=== PATIENT | female | born 1990 | race Caucasian/White ===

== ENCOUNTER 2016-08-23 17:06 | Emergency (ER) | payer BC ==
[2016-08-23 19:20] VITALS: BP 137/92
--- NOTE | 2016-08-23 20:47 | UC ---
Throat Pain/Nasal Andrés HPI - HPI Summary HPI Summary: 25 female presents with mother complaining of swollen lymph nodes and neck tightness for the past 2 weeks. Patient states she is also feeling fatigued. She states she has been feeling the lymph nodes and neck tightness especially when she lays down and before bed. She seems to improve during the day however she states "she has been obsessing over it" and when she goes to bed it bothers her. She has not had any severe symptoms other than vague cold symptoms including runny nose and dry cough. She denies difficulty breathing, sore throat upon swallowing and chest pain. She states her neck just feels tight and sore when she moves it. She finds her self lifting her head up to relieve the tightness often. denies excessive weight loss, gain and constipation/diarrhea. no fever but does sometimes have chills. Also states she has a swollen lymph node under her left arm in her armpit. - History of Current Complaint Chief Complaint: UCGeneralIllness Stated Complaint: SWOLLEN GLANDS Time Seen by Provider: 08/23/16 19:27 Hx Obtained From: Patient Hx Last Menstrual Period: 3 WEEKS AGO Onset/Duration: Sudden Onset, Lasting Weeks Severity: Moderate Pain Intensity: 6 Pain Scale Used: 0-10 Numeric Cough: Nonproductive Associated Signs & Symptoms: Positive: Nasal Discharge. Negative: Dysphagia, Wheezing, Hoarseness, Sinus Discomfort, Fever, Vomiting - Allergies/Home Medications Allergies/Adverse Reactions: Allergies Allergy/AdvReac Type Severity Reaction Status Date / Time No Known Allergies Allergy Verified 08/23/16 19:20 Home Medications: Home Medications [id number]-[id number]-[id number] [Night Time Cold & Flu Rel 15-6.25-325 mg] 1 cap PO PRN 08/23/16 [History] PMH/Surg Hx/FS Hx/Imm Hx Previously Healthy: Yes Endocrine History Of: Denies: Diabetes, Thyroid Disease Cardiovascular History Of: Denies: Cardiac Disorders, Hypertension Respiratory History Of: Denies: COPD, Asthma GI/ History Of: Denies: Ulcer - Surgical History Surgical History: None - Family History Known Family History: Positive: None - Social History Alcohol Use: Occasionally Substance Use Type: None Smoking Status (MU): Never Smoked Tobacco Review of Systems Constitutional: Chills, Fatigue Skin: Negative Eyes: Negative ENT: Nasal Discharge Respiratory: Cough - slight intermittent dry cough past few days Cardiovascular: Negative Gastrointestinal: Negative Genitourinary: Negative Motor: Negative Neurovascular: Negative Musculoskeletal: Myalgia - neck soreness, tightness Neurological: Negative Psychological: Negative All Other Systems Reviewed And Are Negative: Yes Physical Exam Triage Information Reviewed: Yes Appearance: Well-Appearing, No Pain Distress, Well-Nourished Vital Signs: Initial Vital Signs Temp 97.8 F 08/23/16 19:17 Pulse 74 08/23/16 19:17 Resp 16 08/23/16 19:17 BP 137/92 08/23/16 19:17 Pulse Ox 100 08/23/16 19:17 Vital Signs Reviewed: Yes Eyes: Positive: Conjunctiva Clear ENT: Positive: Normal ENT inspection, Hearing grossly normal, Pharynx normal, Nasal congestion, Nasal drainage, TMs normal Dental: Positive: Cervical Lymphadenopathy - 1 slightly enlarged left cervical lymph node Neck: Positive: Supple, Tenderness @ - mild diffuse tenderness on palpation of neck, pain/tenderness with all movements, Enlarged Nodes @ - left cervical and left upper extremity posterior near axilla., Other: - thyroid of normal size, no nodules palpated Respiratory: Positive: Chest non-tender, Lungs clear, Normal breath sounds, No respiratory distress Cardiovascular: Positive: RRR, No Murmur, Pulses Normal Abdominal Exam: Normal Musculoskeletal Exam: Normal Neurological Exam: Normal Psychological Exam: Normal Skin Exam: Normal Throat Pain/Nasal Course/Dx - Course Course Of Treatment: patient was informed that viral illness can cause swollen glands and tend to last a few weeks. due to non-specific symptoms and physical exam findings patient will be treated with a muscle relaxer to determine if it is muscular strain. patient seems to be anxious and stated herself that she has been "obsessing" over the swollen glands and tightness of her neck. Informed that it is possible due to over thinking and constantly palpating and moving the neck could have caused a strain. Stongly recommended follow up with PCP to have further testing done to r/o more serious causes and so PCP is able to follow-up. if anything worsens told to return to . - Differential Dx/Diagnosis Differential Diagnosis/HQI/PQRI: Influenza, Mononucleosis, Pharyngitis, Sinusitis, URI Provider Diagnoses: viral illness, lymphadenopathy, muscle strain-neck Discharge - Discharge Plan Condition: Stable Disposition: HOME Prescriptions: Cyclobenzaprine TAB* [Flexeril TAB*] 10 mg PO DAILY #8 tab Patient Education Materials: Viral Syndrome (ED), Lymphadenopathy (ED) Referrals: [facility] [place] [facility] [Outside] Additional Instructions: Please make an appointment with your primary care provider to have further evaluation and blood work done to rule out other causes of swollen lymph nodes. Take prescribed muscle relaxer before bed to try and help with the tightness and symptoms. Do not drive while taking this medication. If symptoms worsen or do not improve please return to or your PCP.
[2016-08-23] MEDS ORDERED: Cyclobenzaprine TAB* 10 MG PO ONE (21:04)
== END 2016-08-23 21:00 | disposition home or self-care (01) ==
LOC: UCEAST 17:06
DX: B34.9 Viral infection, unspecified (principal); R59.1 Generalized enlarged lymph nodes; S16.1XXA Strain of muscle, fascia and tendon at neck level, initial encounter; X58.XXXA Exposure to other specified factors, initial encounter; Y93.9 Activity, unspecified; Y92.9 Unspecified place or not applicable
CPT/HCPCS: 99212; A9270-GY; G0463

== ENCOUNTER 2024-07-11 20:44 | Inpatient (IN) ==
[2024-07-11] MEDS: Lactated Ringers 1000 ml BAG 1,000 ML IV ONE ×2 (22:22→22:26)
[2024-07-11 22:36] LABS: ABS Basophils 0.1 10^3/uL (0.0-0.1); ABS Lymphocytes 2.3 10^3/uL (1.0-4.8); ABS Monocytes 1.2 10^3/uL (0.0-0.9); ABS Nucleated RBC 0.01 10^3/ul; Eosinophil % 0.1 %; Hematocrit 38.9 % (35-45); Hemoglobin 12.6 g/dL (11.5-14.3); Lymphocyte % 11.9 %; Mean Corpuscular Hemoglobin 25.8 pg (27-33); Mean Corpuscular Hgb Conc 32.3 g/dL (31-36); Mean Corpuscular Volume 79.9 fL (80-97); Mean Platelet Volume 8.7 fL (7.5-11.2); Nucleated Red Blood Cells % 0.1 %/100WBC (0.0-0.8); Platelet Count 291 10^3/uL (150-450); Red Blood Count 4.88 10^6/uL (3.63-4.92); Red Cell Distribution Width 14.8 % (12-17); White Blood Count 19.6 10^3/uL (3.8-11.8)
[2024-07-11] MEDS ORDERED: Phenylephrine 40 mcg/mL 10mL (400mcg) SYRINGE IV PUSH PRN ×2 (22:46)
[2024-07-11] MEDS ORDERED: Sodium Citrate/Citric Acid LIQ 15 ML UDC PO PRN (22:46)
[2024-07-11] MEDS: OBEPIDURAL (200 ML) 200 ML EPIDURAL ONE (23:10)
[2024-07-12] MEDS: Lidocaine 1.5% EPI 1:200,000 30 ML SDV ONE (00:03)
[2024-07-12 00:18] LABS: Urine Benzodiazepine Screen None Detected (None Detect); Urine Cannabinoids Screen None Detected (None Detect); Urine Opiates Screen None Detected (None Detect)
[2024-07-12 00:45] LABS: Urine Appearance Clear; Urine Bilirubin Negative (Negative); Urine Blood 2+ (Negative); Urine Color Light-Yellow; Urine Glucose Negative (Negative); Urine Ketones 2+ (Negative); Urine Nitrite Negative (Negative); Urine Protein 1+ (>=30 mg/dL) (Negative); Urine Specific Gravity 1.021 (1.002-1.030); Urine Urobilinogen Negative (Negative); Urine pH 5.5 (5.0-8.0)
[2024-07-12 00:47] LABS: Urine Bacteria 1+ /HPF (Absent); Urine Red Blood Cell 3+(>10/hpf) /HPF (0-Trace); Urine Squamous Epithelial Cell Present /HPF (Absent); Urine White Blood Cell Trace(0-5/hpf) /HPF (0-Trace)
[2024-07-12] MEDS: Lactated Ringers 1000 ml BAG 1,000 ML IV SCH ×2 (04:12→20:50)
[2024-07-12] MEDS: D5LR 1000 ml BAG 1,000 ML IV SCH (06:34)
[2024-07-12] MEDS: Ampicillin ADVAN 2 GM in NS 0.9% 100 ml BAG 100 ML IVPB SCH (09:09)
[2024-07-12] MEDS: OBEPIDURAL (200 ML) 200 ML EPIDURAL SCH (09:36)
[2024-07-12] MEDS: Gentamicin ADULT 360 MG in NS 0.9% 100 ml BAG 100 ML IVPB SCH (09:54)
[2024-07-12] MEDS: Oxytocin in LR 20,000 MILLI.UNIT/1,000 ML BAG IV ONE (13:48)
[2024-07-12] MEDS ORDERED: Glycerin ADULT 2.4 gm SUPP PR PRN (15:15)
[2024-07-12] MEDS: Lidocaine 1% VIAL 10 MG/ML 30 ML VIAL INJ PRN (15:24)
[2024-07-12] MEDS: Witch Hazel PAD JAR TOPICAL PRN (15:37)
[2024-07-12] MEDS: Dibucaine 1% OINT 28.35 GM TUBE PR PRN (15:37)
[2024-07-12] MEDS ORDERED: Lactated Ringers 1000 ml BAG 1,000 ML IV SCH (16:00)
[2024-07-12] MEDS: Buffered Lidocaine 1% SYRIN 1 ml INTRADERM ONE (20:49)
[2024-07-12] MEDS: Phenylephrine 40 mcg/mL 10mL (400mcg) SYRINGE ONE (20:50)
[2024-07-13 08:27] LABS: ABS Basophils 0.1 10^3/uL (0.0-0.1); ABS Eosinophils 0.2 10^3/uL (0.0-0.5); ABS Lymphocytes 2.4 10^3/uL (1.0-4.8); ABS Monocytes 1.3 10^3/uL (0.0-0.9); ABS Neutrophils 19.8 10^3/uL (1.5-7.6); ABS Nucleated RBC 0.01 10^3/ul; Eosinophil % 0.8 %; Hematocrit 30.3 % (35-45); Hemoglobin 10.1 g/dL (11.5-14.3); Mean Corpuscular Hemoglobin 26.8 pg (27-33); Mean Corpuscular Hgb Conc 33.5 g/dL (31-36); Mean Corpuscular Volume 80.2 fL (80-97); Mean Platelet Volume 8.9 fL (7.5-11.2); Platelet Count 239 10^3/uL (150-450); Red Blood Count 3.78 10^6/uL (3.63-4.92); Red Cell Distribution Width 14.6 % (12-17); White Blood Count 23.7 10^3/uL (3.8-11.8)
[2024-07-14 09:16] VITALS: BP 115/64
== END 2024-07-14 15:11 | disposition home or self-care (01) | DRG 542 ==
LOC: MCHOBOUT 20:44 → MCHOB 21:33
PROVIDERS: ATTEND Midwife